=== PATIENT | female | born 1965 ===

== ENCOUNTER 2017-06-14 08:17 | Emergency (ER) | payer SELFPAY ==
[2017-06-14 08:21] VITALS: BP 120/80; PULSE 91; RESP 20; TEMP 98.7; O2SAT 97
--- NOTE | 2017-06-14 08:31 | C.PDOC ---
History Of Present Illness 51 yo female, hx of schizophrenia, presents for medication refill. pt asking for refill of seroquel. pt states she went to clinic yesterday for refill, however, they did not call her back and was uanble to obtain rx. pt called clinic and clinic refered her to er for refill. at this time, pt denies si/hi/ hallucinations. specifically only requesitng refill. no other complaints Time Seen by Provider: 06/14/17 08:28 Chief Complaint (Nursing): Med Refill Past Medical History Reviewed: Historical Data, Nursing Documentation, Vital Signs Vital Signs: Last Vital Signs Temp 98.7 F 06/14/17 08:19 Pulse 91 H 06/14/17 08:19 Resp 20 06/14/17 08:19 BP 120/80 06/14/17 08:19 Pulse Ox 97 06/14/17 08:46 Surgical History: Cholecystectomy Family History: States: Unknown Family Hx - Social History Hx Alcohol Use: No Hx Substance Use: No Review Of Systems Psych: Negative for: Depression, Psychosis Physical Exam - Physical Exam Appears: Well, No Acute Distress, Other (no acute pyschosis, no hallucination, no flight of ideas, oriented x 3) Skin: Normal Color, Warm, Dry Eye(s): bilateral: Normal Inspection, PERRL, EOMI Nose: Normal Throat: Normal Neck: Normal Cardiovascular: Rhythm Regular Respiratory: Normal Breath Sounds Gastrointestinal/Abdominal: Normal Exam Back: Normal Inspection Extremity: Normal ROM Neurological/Psych: Oriented x3, Normal Speech, Normal Cognition, Normal Cranial Nerves, Normal Motor, Normal Sensation ED Course And Treatment O2 Sat by Pulse Oximetry: 97 Medical Decision Making Medical Decision Making: med refill, no acutely pyscotic. Disposition - Disposition Disposition: HOME/ ROUTINE Disposition Time: 08:45 Condition: STABLE Additional Instructions: please follow up in clinic for further refills. return to er with worsening symptoms or concerns. Prescriptions: QUEtiapine [SEROquel] 25 mg PO TID #24 tab Instructions: Medicine Refill (ED) Forms: [employer] (Uruguayan) - Clinical Impression Clinical Impression: Medication refill
== END 2017-06-14 09:07 | disposition home or self-care (01) ==
LOC: C.ER 08:17
DX: Z76.0 Encounter for issue of repeat prescription (principal)

== ENCOUNTER 2017-11-07 17:06 | Emergency (ER) | payer SELFPAY ==
[2017-11-07 18:22] VITALS: BMI 30.6
[2017-11-07 18:23] VITALS: BP 127/84; PULSE 84; RESP 18; TEMP 98.1; O2SAT 99
--- NOTE | 2017-11-07 19:11 | C.PDOC ---
History Of Present Illness 51 year old female presents to ED with complaints of nasal congestion, rhinorrhea, and malaise for 3 days. Patient additionally complains she had vomiting and diarrhea 2 days ago which has resolved, and has few loose stools. Denies any abdominal pain, fever, dysuria, headache or chills. Time Seen by Provider: 11/07/17 19:04 Chief Complaint (Nursing): Cough, Cold, Congestion History Per: Patient History/Exam Limitations: no limitations Onset/Duration Of Symptoms: Days (3) Current Symptoms Are (Timing): Better Location Of Pain: Sinus/es Sick Contacts (Context): None Associated Symptoms: Cough, Myalgias, Nasal Congestion, Vomiting, Diarrhea Past Medical History Reviewed: Historical Data, Nursing Documentation, Vital Signs Vital Signs: Last Vital Signs Temp 98.1 F 11/07/17 18:22 Pulse 84 11/07/17 18:22 Resp 18 11/07/17 18:22 BP 127/84 11/07/17 18:22 Pulse Ox 99 11/07/17 19:34 - Medical History PMH: HTN, Schizophrenia Surgical History: Cholecystectomy Family History: States: Unknown Family Hx - Social History Hx Alcohol Use: No Hx Substance Use: No - Immunization History Hx Tetanus Toxoid Vaccination: No Hx Influenza Vaccination: No Hx Pneumococcal Vaccination: No Review Of Systems Constitutional: Positive for: Fever (subjective), Malaise ENT: Positive for: Nose Congestion. Negative for: Ear Pain, Throat Pain Cardiovascular: Negative for: Chest Pain, Palpitations Respiratory: Positive for: Cough. Negative for: Shortness of Breath Gastrointestinal: Positive for: Nausea, Vomiting, Diarrhea. Negative for: Abdominal Pain Genitourinary: Negative for: Dysuria, Frequency Skin: Negative for: Rash Neurological: Negative for: Weakness, Numbness, Headache, Dizziness Physical Exam - Physical Exam Appears: Non-toxic, No Acute Distress Skin: Normal Color, Warm, Dry, No Diaphoretic, No Pale, No Rash Head: Atraumatic, Normacephalic Eye(s): bilateral: Normal Inspection, EOMI Ear(s): Bilateral: Normal (no erythema) Nose: Normal Oral Mucosa: Moist Throat: Normal, No Erythema, No Exudate, No Drooling, No Mass Neck: Normal ROM Chest: Symmetrical Cardiovascular: Rhythm Regular, No Murmur Respiratory: Normal Breath Sounds, No Rhonchi, No Wheezing Gastrointestinal/Abdominal: Normal Exam, Soft, No Tenderness Extremity: Bilateral: Atraumatic, Normal Color And Temperature, Normal ROM Neurological/Psych: Oriented x3, Normal Speech Gait: Steady ED Course And Treatment O2 Sat by Pulse Oximetry: 99 Medical Decision Making Medical Decision Making: Patient with resolving symptoms of vomtiing and diarrhea. She now mainly complains of nasal congestion. Recommend oral fluids and will prescribe meds for symptom relief. Patient has no fever or signs of dehydration. No abdominal tenderness. Patient stable for discharge. Disposition Counseled Patient/Family Regarding: Diagnosis, Need For Followup, Rx Given - Disposition Referrals: [facility] [Outside] [facility] [Outside] Disposition: HOME/ ROUTINE Disposition Time: 19:12 Condition: STABLE Additional Instructions: : You have viral upper respiratory infection. Take Tylenol or Motrin alternating every 4-6 hours for Fever 100.4F or higher. Rest and drink plenty of fluids. Follow up with your primary medical doctor or clinic in 2-5 days for further evaluation. Prescriptions: Pseudoephedrine HCl [Sudafed] 30 mg PO Q8 #24 tablet Saccharomyces Boulardi [Florastor] 250 mg PO BID #20 cap Instructions: Upper Respiratory Infection (ED), Gastroenteritis (DC) - POA Present On Arrival: None - Clinical Impression Clinical Impression: Viral illness
== END 2017-11-07 19:24 | disposition home or self-care (01) ==
LOC: C.ER 17:06
DX: B34.9 Viral infection, unspecified (principal)

== ENCOUNTER 2018-08-23 13:15 | Emergency (ER) | payer OTHER ==
[2018-08-23 13:15] VITALS: BMI 32.8
[2018-08-23 13:44] VITALS: BP 106/72; PULSE 81; RESP 19; TEMP 98.4; O2SAT 99
--- NOTE | 2018-08-23 14:55 | RAD ---
Date of service: 08/23/2018 PROCEDURE: Left Knee Radiographs. HISTORY: Pain. COMPARISON: None. FINDINGS: BONES: Bone alignment and mineralization are normal. There is no acute displaced fracture or bone destruction. JOINTS: There is mild tricompartmental degenerative osteoarthrosis with reduced joint spaces, marginal osteophytes and tibial spiking, worse in the media compartment. JOINT EFFUSION: None. OTHER FINDINGS: None. IMPRESSION: No acute fracture or dislocation.
--- NOTE | 2018-08-23 15:03 | C.PDOC ---
History Of Present Illness 52 year old female complains of left knee pain and right hip pain for one month. She reports the pain started after moving furniture in her home, but denies fall. She describes the pain as intermittent aching pain. The pain becomes better at rest and gets worse with movement. She reports seeing clinic doctor who prescribed Mobic and Flexeril but the pain persists. Denies back pain, numbness, weakness and urinary symptoms. Time Seen by Provider: 08/23/18 14:17 Chief Complaint (Nursing): Lower Extremity Problem/Injury History Per: Patient History/Exam Limitations: no limitations Onset/Duration Of Symptoms: Days, Intermittent Episodes Current Symptoms Are (Timing): Still Present Past Medical History Reviewed: Historical Data, Nursing Documentation, Vital Signs Vital Signs: Last Vital Signs Temp 98.4 F 08/23/18 13:41 Pulse 81 08/23/18 13:41 Resp 19 08/23/18 13:41 BP 106/72 08/23/18 13:41 Pulse Ox 99 08/23/18 13:41 - Medical History PMH: Asthma, HTN, Schizophrenia Surgical History: Cholecystectomy Family History: States: Unknown Family Hx - Social History Hx Alcohol Use: Yes Hx Substance Use: No - Immunization History Hx Tetanus Toxoid Vaccination: No Hx Influenza Vaccination: No Hx Pneumococcal Vaccination: No Review Of Systems Constitutional: Negative for: Weakness Genitourinary: Negative for: Dysuria, Frequency, Incontinence Musculoskeletal: Positive for: Leg Pain (Left knee pain), Other (Right hip pain). Negative for: Back Pain Neurological: Negative for: Weakness, Numbness Physical Exam - Physical Exam Appears: Well, Non-toxic, No Acute Distress Skin: Normal Color Head: Atraumatic, Normacephalic Eye(s): bilateral: Normal Inspection Neck: Normal, Supple Cardiovascular: Rhythm Regular, No Murmur Respiratory: Normal Breath Sounds Extremity: Normal ROM (Right hip normal, nontender), No Calf Tenderness, No Deformity, Swelling (Left knee has mild swelling of the anterior patella and minimal tenderness, normal ROM) Extremity: Right: Hips Non-Tender Neurological/Psych: Oriented x3, Normal Speech Gait: Steady ED Course And Treatment O2 Sat by Pulse Oximetry: 99 (RA) Pulse Ox Interpretation: Normal Medical Decision Making Medical Decision Making: Impression: 52 year old female complain of joint pain, no trauma -Plan: -KNEE 3 VIEWS LT [RAD] Stat -HIP MIN 2V W/ PELVIS RT [RAD] Stat Progress, Reassess and Dispo: Xrays viewed by me and shows no fracture, dislocation, effusion or other abnormality. Patient feels comfortable going home and will be discharged. Patient given follow up instructions. Disposition Counseled Patient/Family Regarding: Diagnosis, Need For Followup, Rx Given - Disposition Referrals: Deborah De La Cruz MD [Staff Provider] - Disposition: HOME/ ROUTINE Disposition Time: 15:04 Condition: STABLE Additional Instructions: Your xray was normal, no fracture. Please apply ice to area 15 minutes three times a day. Take Motrin as needed for pain every 6 hours, with food to not upset stomach. Take Tramadol for more severe pain. Follow up with orthopedic if pain persists over one week. Prescriptions: Ibuprofen [Motrin] 600 mg PO Q8 #30 tab traMADol [Ultram] 50 mg PO Q8 #20 tab Instructions: Joint Pain Forms: [employer] (Kinyarwanda) - POA Present On Arrival: None - Clinical Impression Clinical Impression: Hip pain, right, Knee pain, left - PA / ULTRASOUND TECHNOL / Resident Statement MD/DO has reviewed & agrees with the documentation as recorded. - Scribe Statement The provider has reviewed the documentation as recorded by the Scribe (Chivo cervantes) All medical record entries made by the Scribe were at my direction and personally dictated by me. I have reviewed the chart and agree that the record accurately reflects my personal performance of the history, physical exam, medical decision making, and the department course for this patient. I have also personally directed, reviewed, and agree with the discharge instructions and disposition.
--- NOTE | 2018-08-23 15:17 | RAD ---
PROCEDURE: Right Hip Radiographs. HISTORY: pain for 1 month no trauma COMPARISON: None. FINDINGS: BONES: Bone alignment and mineralization are normal. There is no acute displaced fracture or bone destruction. JOINTS: Normal. SOFT TISSUES: Normal. OTHER FINDINGS: None. IMPRESSION: No acute fracture or dislocation.
== END 2018-08-23 15:13 | disposition home or self-care (01) ==
LOC: C.ER 13:15
DX: M25.551 Pain in right hip (principal); M25.562 Pain in left knee

== ENCOUNTER 2018-10-02 09:35 | Emergency (ER) | payer OTHER ==
[2018-10-02 09:36] VITALS: BMI 32.8
--- NOTE | 2018-10-02 10:24 | C.PDOC ---
History Of Present Illness 52 year old female presents to the ED for evaluation of left knee pain which has been intermittent since June 2018. Patient has been evaluated in this ED on 08/23 for the same complaint and was prescribed Tramadol. She stopped taking Tramadol because it made her anxious. Patient was evaluated by her PMD and prescribed Mobic, which she took without relief. Patient was not seen by the referred orthopedist, because she has [facility] care. Patient states she was walking up the stairs yesterday when she felt a popping sensation to the area, prompting today's visit. She denies any new injuries or sensory changes. Time Seen by Provider: 10/02/18 09:50 Chief Complaint (Nursing): Lower Extremity Problem/Injury History Per: Patient History/Exam Limitations: no limitations Onset/Duration Of Symptoms: Other (months ) Current Symptoms Are (Timing): Still Present Additional History Per: Patient Past Medical History Reviewed: Historical Data, Nursing Documentation, Vital Signs Vital Signs: Last Vital Signs Temp 99 F 10/02/18 09:45 Pulse 79 10/02/18 09:45 Resp 18 10/02/18 09:45 BP 119/84 10/02/18 09:45 Pulse Ox 98 10/02/18 09:45 - Medical History PMH: Asthma, HTN, Schizophrenia Surgical History: Cholecystectomy Family History: States: Unknown Family Hx - Social History Hx Alcohol Use: Yes Hx Substance Use: No - Immunization History Hx Tetanus Toxoid Vaccination: No Hx Influenza Vaccination: No Hx Pneumococcal Vaccination: No Review Of Systems Musculoskeletal: Positive for: Other (left knee pain ) Neurological: Negative for: Weakness, Numbness Physical Exam - Physical Exam Appears: Non-toxic, Other (tearful, in moderate pain ) Skin: Normal Color, Warm, Dry Extremity: Tenderness (diffuse to left knee with palpation ), No Calf Tenderness, Capillary Refill (less than 2 seconds ), No Deformity, Swelling (mild, left knee ), Other (range of motion is intact, but worsens the pain) Pulses: Left Dorsalis Pedis: Normal, Right Dorsalis Pedis: Normal Neurological/Psych: Oriented x3, Normal Speech, Normal Cognition, Normal Sensation ED Course And Treatment O2 Sat by Pulse Oximetry: 98 (on RA) Pulse Ox Interpretation: Normal - Other Rad knee XR X-Ray: Viewed By Me, Read By Radiologist Interpretation: Date of service: 10/02/2018. PROCEDURE: Left Knee Radiographs. HISTORY: Posttraumatic left knee pain. COMPARISON: 08/23/2018. FINDINGS: BONES: Normal. No fracture. JOINTS: Normal. No osteoarthritis. JOINT EFFUSION: None. OTHER FINDINGS: None. IMPRESSION: No acute findings related to/accounting for the clinical presentation. No significant interval change compared to the prior examination(s). Progress Note: Left knee XR ordered. Results are unremarkable. Toradol IM given. SKY wrap applied to left knee by rv service technician, was checked by me. Patient was instructed on crutch use by physical therapist. On reassessment, patient is resting comfortably, showing no signs of distress and is stable for discharge. Patient will be given Rx for Toradol for pain. Patient is instructed to follow up with orthopedic clinic downstairs for further evaluation. 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 Name Address [facility] Zip Phone MD SADAF, HARVEY Quiroz [address] [facility] [address] CEC[address] [facility] [address] [phone] [facility] Address [facility] Zip Phone [employer]. [phone] [facility] [address] [facility] [phone] [facility] [address] [phone] Disposition Counseled Patient/Family Regarding: Studies Performed, Diagnosis, Need For Followup, Rx Given - Disposition Referrals: [facility] [Outside] Jessica Fitzpatrick MD [Staff Provider] - Disposition: HOME/ ROUTINE Disposition Time: 12:15 Condition: STABLE Additional Instructions: FOLLOW UP IN ORTHOPEDICS CLINIC WITHIN 1 WEEK, IT IS EVERY OTHER SUNDAY USE MEDICATION NEEDED FOR PAIN RETURN TO ER IF SYMPTOMS WORSEN Prescriptions: Ketorolac Tromethamine [Toradol] 10 mg PO BID PRN #15 tab PRN Reason: PAIN Instructions: Knee Sprain (DC) Forms: [employer] (Senegalese) Print Language: BAHAMIAN - POA Present On Arrival: Falls Or Trauma - Clinical Impression Clinical Impression: Sprain of left knee, Soft tissue injury of left knee - Scribe Statement The provider has reviewed the documentation as recorded by the Scribe (Marita Blevins) Provider Attestation: All medical record entries made by the Scribe were at my direction and personally dictated by me. I have reviewed the chart and agree that the record accurately reflects my personal performance of the history, physical exam, medical decision making, and the department course for this patient. I have also personally directed, reviewed, and agree with the discharge instructions and d isposition.
[2018-10-02 12:51] VITALS: BP 123/81; PULSE 82; RESP 20; TEMP 98.2
[2018-10-02 14:18] VITALS: O2SAT 98
--- NOTE | 2018-10-02 14:38 | RAD ---
Date of service: 10/02/2018 PROCEDURE: Left Knee Radiographs. HISTORY: Posttraumatic left knee pain COMPARISON: 08/23/2018 FINDINGS: BONES: Normal. No fracture. JOINTS: Normal. No osteoarthritis. JOINT EFFUSION: None. OTHER FINDINGS: None. IMPRESSION: No acute findings related to/accounting for the clinical presentation. No significant interval change compared to the prior examination(s).
== END 2018-10-02 12:55 | disposition home or self-care (01) ==
LOC: C.ER 09:35
DX: S83.92XA Sprain of unspecified site of left knee, initial encounter (principal); X50.0XXA Overexertion from strenuous movement or load, initial encounter; Y92.9 Unspecified place or not applicable; I10 Essential (primary) hypertension
CPT/HCPCS: 73562; 96372; 97116; 97161; 99284; G8978; G8979; G8980; J1885